=== PATIENT | female | born 2000 | race Caucasian/White ===

== ENCOUNTER 2020-04-24 12:49 | Observation (INO) | payer MEDICAID ==
[2020-04-24] MEDS ORDERED: Sodium Chloride 0.9% 1,000 ML IV ONE (13:01)
[2020-04-24] MEDS ORDERED: Terbutaline 1 MG/ML SDV SUBCUT ONE (13:15)
[2020-04-24] MEDS ORDERED: Sodium Chloride 0.9% 1,000 ML IV SCH ×2 (14:00→19:00)
--- NOTE | 2020-04-24 15:00 | US ---
Doppler Umbilical CLINICAL HISTORY: Contractions COMPARISON: None available FINDINGS: There is a single viable fetus in vertex position. heart rate is 1 46 bpm Umbilical artery S to D ratios: 2.79, 2.26, 2.60 IMPRESSION: S/D ratios as above
[2020-04-24] MEDS: NIFEdipine 10 MG Cap PO SCH ×2 (16:39→22:56)
[2020-04-24] MEDS ORDERED: cefTRIAXone 2 GM in Sodium Chloride 0.9% 50 ML IV ONE (16:45)
[2020-04-24] MEDS: metroNIDAZOLE 250 MG Tab PO SCH (17:06)
--- NOTE | 2020-04-24 18:14 | PCM.LDHP ---
L&D History of Present Illness - General Date of Service: 04/24/20 Admit Problem/Dx: Patient Status Order with Admit Dx/Problem 04/24/20 13:15 Admission Status [Patient Status] [ADT] Routine Admission Diagnosis/Problem Admission Diagnosis/Problem - Related Data Allergies/Adverse Reactions: Allergies Allergy/AdvReac Type Severity Reaction Status Date / Time No Known Allergies Allergy Verified 07/14/18 07:35 Home Medications: Home Meds NK [No Known Home Meds] 07/14/18 [History] Past Medical History HEENT History: Reports: Impaired Vision [employer] INS[employer]OR History: Reports: Psychiatric History: Reports: Anxiety, Depression - Past Surgical History HEENT Surgical History: Reports: Adenoidectomy, Tonsillectomy Social & Family History - Family History Family Medical History: Noncontributory - Tobacco Use Smoking Status *Q: Light Tobacco Smoker Years of Tobacco use: 4 Packs/Tins Daily: 0.2 Second Hand Smoke Exposure: No - Caffeine Use Caffeine Use: Reports: Coffee Other Caffeine Use: small amounts of coffee and soda Caffeine Use Comment: 1 can soda per day - Recreational Drug Use Recreational Drug Use: Yes Drug Use in Last 12 Months: Yes Recreational Drug Type: Reports: Marijuana/Hashish H&P Review of Systems - Review of Systems: Review Of Systems: See Below General: Reports: No Symptoms HEENT: Reports: No Symptoms Pulmonary: Reports: No Symptoms Cardiovascular: Reports: No Symptoms Gastrointestinal: Reports: No Symptoms Genitourinary: Reports: No Symptoms Musculoskeletal: Reports: No Symptoms Skin: Reports: No Symptoms Psychiatric: Reports: No Symptoms Neurological: Reports: No Symptoms Hematologic/Lymphatic: Reports: No Symptoms Immunologic: Reports: No Symptoms L&D Exam - Exam Exam: See Below - Vital Signs Vital Signs: Last Vital Signs Temp 37.0 C 04/24/20 12:59 Pulse 82 04/24/20 17:30 Resp 16 04/24/20 12:59 BP 105/53 L 04/24/20 17:30 Pulse Ox 98 04/24/20 12:59 Weight: 63 kg - OB Specific Contraction Intensity: Mild Movement: Active Heart Tones: Present Heart Rate (FHR) Variability: Moderate (6-25 bmp) Presentation: Vertex - Rojas Score Rojas Score Cervix Position: Midposition Rojas Score Consistency: Soft Rojas Score Effacement: 51-70% Rojas Score Dilation: 1-2 cm Rojas Score 's Station: -1 ,0 Rojas Score Total: 8 - Exam General: Alert, Oriented, Cooperative HEENT: PERRLA, Conjunctiva Clear, EACs Clear, EOMI, Hearing Intact, Mucosa Moist & [place], Nares Patent, Normal Nasal Septum, Posterior Pharynx Clear, TMs Clear Neck: Supple, Trachea Midline Lungs: Clear to Auscultation, Normal Respiratory Effort Cardiovascular: Regular Rate, Regular Rhythm GI/Abdominal Exam: Normal Bowel Sounds, Soft, Non-Tender, No Organomegaly, No Distention, No Abnormal Bruit, No Mass, Pelvis Stable Rectal Exam: Normal Exam, Normal Rectal Tone Genitourinary: Normal external exam, Normal bimanual exam, Normal speculum exam Back Exam: Normal Inspection, Full Range of Motion Extremities: Normal Inspection, Normal Range of Motion, Non-Tender, No Pedal Edema, Normal Capillary Refill Skin: Warm, Dry, Intact Neurological: Cranial Nerves Intact, Reflexes Equal Bilateral Psychiatric: Alert, Normal Affect, Normal Mood - Patient Data Lab Results Last 24 hrs: Laboratory Results - last 24 hr 04/24/20 04/24/20 Range/Units 15:30 15:30 Urine Color Yellow (YELLOW) Urine Appearance Slightly cloudy A (CLEAR) Urine pH 7.5 (5.0-8.0) Ur Specific [place] 1.025 (1.008-1.030) Urine Protein Negative (NEGATIVE) mg/dL Urine Glucose (UA) Negative (NEGATIVE) mg/dL Urine Ketones Negative (NEGATIVE) mg/dL Urine Occult Blood Trace-intact H (NEGATIVE) Urine Nitrite Negative (NEGATIVE) Urine Bilirubin Negative (NEGATIVE) Urine Urobilinogen 0.2 (0.2-1.0) EU/dL Ur Leukocyte Esterase Trace H (NEGATIVE) Urine RBC 0-5 (0-5) Urine WBC 5-10 H (0-5) Ur Epithelial Cells Few Amorphous Sediment Not seen Urine Bacteria Few Urine Mucus Moderate Urine Opiates Screen Negative (NEGATIVE) Ur Oxycodone Screen Negative (NEGATIVE) Urine Methadone Screen Negative (NEGATIVE) Ur Propoxyphene Screen Negative (NEGATIVE) Ur Barbiturates Screen Negative (NEGATIVE) Ur Tricyclics Screen Negative (NEGATIVE) Ur Phencyclidine Scrn Negative (NEGATIVE) Ur Amphetamine Screen Negative (NEGATIVE) U Methamphetamines Scrn Negative (NEGATIVE) Urine MDMA Screen Negative (NEGATIVE) U Benzodiazepines Scrn Negative (NEGATIVE) U Cocaine Metab Screen Negative (NEGATIVE) U Marijuana (THC) Screen Presumptive positive H (NEGATIVE) [place] Results Last 24 hrs: Microbiology 04/24/20 13:00 RAFAEL Preparation - Final Vagina Wet Prep - Final - Problem List (1) Bacterial vaginosis SNOMED Code(s): 757268647 ICD Code: N76.0 - ACUTE VAGINITIS; B96.89 - OTH BACTERIAL AGENTS THE CAUSE OF DISEASES CLASSD [id number] Status: Acute Current Visit: Yes (2) UTI (urinary tract infection) SNOMED Code(s): 37663575 ICD Code: N39.0 - URINARY TRACT INFECTION, SITE NOT SPECIFIED Status: Acute Current Visit: Yes Qualifiers: Encounter type: initial encounter (3) SGA (small for gestational age), , affecting care of mother, antepartum SNOMED Code(s): 083526830, 702927457701 ICD Code: O36.5990 - MATERN CARE FOR OTH OR SUSP POOR FETL GRTH, UNSP TRI, UNSP Status: Acute Current Visit: Yes (4) labor in third trimester SNOMED Code(s): 8505665 ICD Code: O60.03 - LABOR WITHOUT DELIVERY, THIRD TRIMESTER Status: Acute Current Visit: No Problem List Initiated/Reviewed/Updated: Yes Orders Last 24hrs: Active Orders 24 hr Category Date Time Status Admission Status [Patient Status] [ADT] Routine ADT 04/24/20 13:15 Active OB Check [OM.PC] Click to Edit Care 04/24/20 13:00 Ordered Regular Diet [DIET] Diet 04/24/20 Dinner Active CULTURE URINE [RM] Routine Lab 04/24/20 16:12 Received NIFEdipine [Procardia] Med 04/24/20 16:30 Active 10 mg PO Q6H Sodium Chloride 0.9% [Normal Saline] 1,000 ml Med 04/24/20 14:00 Active IV ASDIRECTED metroNIDAZOLE Med 04/24/20 17:00 Active 500 mg PO Q12H Medication Orders Sodium Chloride (Normal Saline) 1,000 mls @ 150 mls/hr IV ASDIRECTED TRINI Last Admin: 04/24/20 13:57 Dose: 150 mls/hr Documented by: CAROLYN Metronidazole (Metronidazole) 500 mg PO Q12H [facility]IN[facility] Last Admin: 04/24/20 17:06 Dose: 500 mg Documented by: CAROLYN Nifedipine (Procardia) 10 mg PO Q6H [facility] Last Admin: 04/24/20 16:39 Dose: 10 mg Documented by: CAROLYN Assessment/Plan Comment:: 04/24/2020 19 yo here at 34 4/7 gestational weeks. Was seen in clinic for routine OB check with NST for possible IUGR and grade 3 placenta. During this visit was haylie regular and having occasional variables. Decision was made to send her to hospital for further evaluation. SVE-2//-1 FHTs now a category one Contractions regular Plan- Will give one dose of terbutaline SQ Start IV and bolus fluids wet prep and RAFAEL collected Collect UA and UDS Continuous monitor of FHTs and contractions Modified bedrest Will consult with [employer]PECTOR in [place]
--- NOTE | 2020-04-24 18:18 | PCM.PNLD ---
Labor Progress Note - VS & Meds Vital Signs: Last Vital Signs Temp 37.0 C 04/24/20 12:59 Pulse 82 04/24/20 17:30 Resp 16 04/24/20 12:59 BP 105/53 L 04/24/20 17:30 Pulse Ox 98 04/24/20 12:59 Active Medications: Current Medications Sodium Chloride (Normal Saline) 1,000 mls @ 150 mls/hr IV ASDIRECTED [facility] Last Admin: 04/24/20 13:57 Dose: 150 mls/hr Documented by: Metronidazole (Metronidazole) 500 mg PO Q12H [facility] Last Admin: 04/24/20 17:06 Dose: 500 mg Documented by: Nifedipine (Procardia) 10 mg PO Q6H [facility] Last Admin: 04/24/20 16:39 Dose: 10 mg Documented by: Discontinued Medications Sodium Chloride (Normal Saline) 1,000 mls @ 999 mls/hr IV .BOLUS ONE Stop: 04/24/20 14:01 Last Admin: 04/24/20 13:15 Dose: 999 mls/hr Documented by: Ceftriaxone Sodium 2 gm/ (Sodium Chloride) 50 mls @ 100 mls/hr IV ONETIME ONE Stop: 04/24/20 17:14 Last Admin: 04/24/20 17:06 Dose: 100 mls/hr Documented by: Terbutaline Sulfate (Brethine) 0.25 mg SUBCUT ONETIME ONE Stop: 04/24/20 13:16 Last Admin: 04/24/20 13:16 Dose: 0.25 mg Documented by: - Uterine Contractions Uterine Monitoring Mode: External [place] Contraction Frequency (min): 0 Contraction Intensity: Mild Uterine Resting Tone: Soft - Monitoring Monitor Mode: External Ultrasound Heart Rate (FHR) Variability: Moderate (6-25 bmp) Accelerations: Present, 15x15 Decelerations: None Strip Review: Category I - Vaginal Exam Dilation (cm): 2-3 Effacement (Percent): 60 Station: Ballotable Cervical Position: Midposition Sterile Vaginal Exam Performed By: Paula Mcleod - Labor Progress (Free Text) Labor Progress: 04/24/2020 Patient has slowed down with contractions and has only had one variable on monitor. BPP-8/8, cord doppler within normal limits FHTs category one Contractions more irregular BV detected on wet prep UA indicates possible UTI Consult with [place] states we do not need to ship for Variables-as long as ANANT is good and cord doppler is good-Per Dr. Toribio Plan- Continue to monitor for labor signs Continue to monitor FHTs Rocephin IV for UTI Flagyl for BV Continue IV fluids 150ml/hour Will plan to keep overnight if no cervical change will go home on modified bed rest Start procardia as prescribed
--- NOTE | 2020-04-24 18:20 | PCM.PNLD ---
Labor Progress Note - VS & Meds Vital Signs: Last Vital Signs Temp 37.0 C 04/24/20 12:59 Pulse 82 04/24/20 17:30 Resp 16 04/24/20 12:59 BP 105/53 L 04/24/20 17:30 Pulse Ox 98 04/24/20 12:59 Active Medications: Current Medications Sodium Chloride (Normal Saline) 1,000 mls @ 150 mls/hr IV ASDIRECTED [facility] Last Admin: 04/24/20 13:57 Dose: 150 mls/hr Documented by: Metronidazole (Metronidazole) 500 mg PO Q12H [facility] Last Admin: 04/24/20 17:06 Dose: 500 mg Documented by: Nifedipine (Procardia) 10 mg PO Q6H [facility] Last Admin: 04/24/20 16:39 Dose: 10 mg Documented by: Discontinued Medications Sodium Chloride (Normal Saline) 1,000 mls @ 999 mls/hr IV .BOLUS ONE Stop: 04/24/20 14:01 Last Admin: 04/24/20 13:15 Dose: 999 mls/hr Documented by: Ceftriaxone Sodium 2 gm/ (Sodium Chloride) 50 mls @ 100 mls/hr IV ONETIME ONE Stop: 04/24/20 17:14 Last Admin: 04/24/20 17:06 Dose: 100 mls/hr Documented by: Terbutaline Sulfate (Brethine) 0.25 mg SUBCUT ONETIME ONE Stop: 04/24/20 13:16 Last Admin: 04/24/20 13:16 Dose: 0.25 mg Documented by: - Uterine Contractions Uterine Monitoring Mode: External [place] Contraction Frequency (min): 0 Contraction Intensity: Mild Uterine Resting Tone: Soft - Monitoring Monitor Mode: External Ultrasound Heart Rate (FHR) Variability: Moderate (6-25 bmp) Accelerations: Present, 15x15 Decelerations: None Strip Review: Category I - Vaginal Exam Dilation (cm): 2-3 Effacement (Percent): 60 Station: Ballotable Cervical Position: Midposition Sterile Vaginal Exam Performed By: Paula Mcleod - Labor Progress (Free Text) Labor Progress: 04/24/2020 Patient currently doing better, very irregular contractions FHTs category one Plan- Can go to every four hour NST with vital signs Patient can get up to bathroom and may shower Can have regular diet Continue medications as prescribed Will give medication to help sleep Plan discharge home tomorrow as long as no labor
[2020-04-25] MEDS: NIFEdipine 10 MG Cap PO SCH ×2 (03:38→08:11)
[2020-04-25] MEDS: metroNIDAZOLE 250 MG Tab PO SCH ×2 (03:41→05:27)
--- NOTE | 2020-04-25 08:03 | PCM.PNLD ---
Labor Progress Note - VS & Meds Vital Signs: Last Vital Signs Temp 35.9 C L 04/25/20 03:41 Pulse 60 04/25/20 03:41 Resp 16 04/25/20 03:41 BP 104/46 L 04/25/20 03:41 Pulse Ox 100 04/25/20 03:41 Active Medications: Current Medications Sodium Chloride (Normal Saline) 1,000 mls @ 100 mls/hr IV ASDIRECTED [facility] Metronidazole (Metronidazole) 500 mg PO Q12H [facility] Last Admin: 04/25/20 05:27 Dose: Not Given Documented by: Nifedipine (Procardia) 10 mg PO Q6H [facility] Last Admin: 04/25/20 03:38 Dose: 10 mg Documented by: Discontinued Medications Sodium Chloride (Normal Saline) 1,000 mls @ 999 mls/hr IV .BOLUS ONE Stop: 04/24/20 14:01 Last Admin: 04/24/20 13:15 Dose: 999 mls/hr Documented by: Sodium Chloride (Normal Saline) 1,000 mls @ 150 mls/hr IV ASDIRECTED [facility] Last Admin: 04/24/20 13:57 Dose: 150 mls/hr Documented by: Ceftriaxone Sodium 2 gm/ (Sodium Chloride) 50 mls @ 100 mls/hr IV ONETIME ONE Stop: 04/24/20 17:14 Last Admin: 04/24/20 17:06 Dose: 100 mls/hr Documented by: Terbutaline Sulfate (Brethine) 0.25 mg SUBCUT ONETIME ONE Stop: 04/24/20 13:16 Last Admin: 04/24/20 13:16 Dose: 0.25 mg Documented by: - Uterine Contractions Uterine Monitoring Mode: External [place] Contraction Frequency (min): 0 Contraction Duration (sec): 0 Uterine Resting Tone: Soft - Monitoring Monitor Mode: External Ultrasound Heart Rate (FHR) Baseline: 150 Heart Rate (FHR) Variability: Moderate (6-25 bmp) Accelerations: Present, 15x15 Decelerations: None Strip Review: Category I - Vaginal Exam Dilation (cm): 2-3 Effacement (Percent): 60 Station: Ballotable Cervical Position: Midposition Sterile Vaginal Exam Performed By: Paula Mcleod Vaginal Exam Comment: No SVE this am - Labor Progress (Free Text) Labor Progress: 04/25/20 Assessment: No further contractions FHT's 150, moderate variability with accels and no decels, category 1 Plan: Discharge home with procardia and Flagyl prescriptions BPP, NST, cord doppler US next week is already scheduled Follow up sooner if any contractions or concerns
== END 2020-04-25 08:40 | disposition home or self-care (01) ==
LOC: JP.OBCHECK 12:49 → JP.OB 13:15 → JP.MS 21:51
PROVIDERS: ADMIT Advanced Practice Midwife; ATTEND Advanced Practice Midwife
DX: O23.593 Infection of other part of genital tract in pregnancy, third trimester (principal); O23.43 Unspecified infection of urinary tract in pregnancy, third trimester; O36.5990 Maternal care for other known or suspected poor fetal growth, unspecified trimester, not applicable or unspecified; O60.03 Preterm labor without delivery, third trimester; O99.333 Smoking (tobacco) complicating pregnancy, third trimester; F17.210 Nicotine dependence, cigarettes, uncomplicated; O99.343 Other mental disorders complicating pregnancy, third trimester; F41.9 Anxiety disorder, unspecified; F32.9 Major depressive disorder, single episode, unspecified; Z3A.34 34 weeks gestation of pregnancy; Z79.899 Other long term (current) drug therapy
CPT/HCPCS: 76820; 80305; 81001; 87086; 87210; 96361; 96365; 96372; A9270; G0378; J0696; J3105; J7030; J7050; 99211

== ENCOUNTER 2020-05-14 19:01 | Inpatient (IN) | payer MEDICAID ==
[2020-05-15] MEDS ORDERED: Naloxone 0.4 MG/ML SDV IVPUSH PRN (07:38)
[2020-05-15] MEDS ORDERED: ePHEDrine 50 MG/ML SDV IVPUSH PRN ×2 (07:38)
[2020-05-15] MEDS ORDERED: Sodium Chloride 0.9% 10 ML Syringe FLUSH PRN (07:38)
[2020-05-15] MEDS ORDERED: Lactated Ringers 1,000 ML IV ONE (07:38)
[2020-05-15] MEDS ORDERED: diphenhydrAMINE 50 MG/ML SDV IVPUSH PRN ×2 (07:38)
[2020-05-15] MEDS ORDERED: Ropivacaine 200 MG in Premix Bag 1 BAG EPIDUR SCH (07:45)
--- NOTE | 2020-05-15 07:53 | PCM.LDHP ---
L&D History of Present Illness - General Date of Service: 05/15/20 Admit Problem/Dx: Patient Status Order with Admit Dx/Problem 05/15/20 07:38 Patient Status [ADT] Routine Admission Diagnosis/Problem Admission Diagnosis/Problem - Related Data Allergies/Adverse Reactions: Allergies Allergy/AdvReac Type Severity Reaction Status Date / Time No Known Allergies Allergy Verified 07/14/18 07:35 Home Medications: Home Meds NIFEdipine [Procardia] 20 mg PO QID 05/04/20 [History] Pnv No.103/Folic/Om3s/Fish Oil [ Gummies] 1 tab PO DAILY 05/04/20 [History] Past Medical History HEENT History: Reports: Impaired Vision 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: Psychiatric History: Reports: Anxiety, Depression - Past Surgical History HEENT Surgical History: Reports: Adenoidectomy, Tonsillectomy Social & Family History - Family History Family Medical History: Noncontributory - Tobacco Use Smoking Status *Q: Light Tobacco Smoker Years of Tobacco use: 5 Packs/Tins Daily: 0.5 Used Tobacco, but Quit: No Second Hand Smoke Exposure: Yes - Caffeine Use Caffeine Use: Reports: Coffee, Soda Other Caffeine Use: small amounts of coffee and soda Caffeine Use Comment: 1 can soda per day - Recreational Drug Use Recreational Drug Use: Yes Drug Use in Last 12 Months: Yes Recreational Drug Type: Reports: Marijuana/Hashish Recreational Drug Use Frequency: Daily H&P Review of Systems - Review of Systems: Review Of Systems: See Below General: Reports: No Symptoms HEENT: Reports: No Symptoms Pulmonary: Reports: No Symptoms Cardiovascular: Reports: No Symptoms Gastrointestinal: Reports: No Symptoms Genitourinary: Reports: No Symptoms Musculoskeletal: Reports: No Symptoms Skin: Reports: No Symptoms Psychiatric: Reports: No Symptoms Neurological: Reports: No Symptoms Hematologic/Lymphatic: Reports: No Symptoms Immunologic: Reports: No Symptoms L&D Exam - Exam Exam: See Below - Vital Signs Vital Signs: Last Vital Signs Temp 36.0 C L 05/15/20 06:44 Pulse 84 05/15/20 06:44 Resp 16 05/15/20 06:44 BP 111/69 05/15/20 06:44 Pulse Ox 98 05/15/20 06:44 Weight: 63.049 kg - OB Specific Contraction Intensity: Moderate Movement: Active Heart Tones: Present Heart Rate (FHR) Variability: Moderate (6-25 bmp) Presentation: Vertex Estimated Weight: 5lbs - Rojas Score Rojas Score Cervix Position: Midposition Rojas Score Consistency: Soft Rojas Score Effacement: 51-70% Rojas Score Dilation: 1-2 cm Rojas Score Infant's Station: -1 ,0 Rojas Score Total: 8 - Exam General: Alert, Oriented, Cooperative HEENT: PERRLA, Conjunctiva Clear, EACs Clear, EOMI, Hearing Intact, Mucosa Moist & [place], Nares Patent, Normal Nasal Septum, Posterior Pharynx Clear, Pupils Equal, Pupils Reactive, TMs Clear Neck: Supple, Trachea Midline Lungs: Clear to Auscultation, Normal Respiratory Effort Cardiovascular: Regular Rate, Regular Rhythm GI/Abdominal Exam: Normal Bowel Sounds, Soft, Non-Tender, No Organomegaly, No Distention, No Abnormal Bruit, No Mass, Pelvis Stable Rectal Exam: Normal Exam, Normal Rectal Tone Genitourinary: Normal external exam, Normal bimanual exam Back Exam: Normal Inspection, Full Range of Motion Extremities: Normal Inspection, Normal Range of Motion, Non-Tender, No Pedal Edema, Normal Capillary Refill Skin: Warm, Dry, Intact Neurological: Cranial Nerves Intact, Reflexes Equal Bilateral DTR: 2+: Patella (L), Patella (R) Psychiatric: Alert, Normal Affect, Normal Mood - Patient Data Lab Results Last 24 hrs: Laboratory Results - last 24 hr 05/15/20 05/15/20 05/15/20 Range/Units 06:41 06:41 07:10 WBC 10.5 (4.5-11.0) K/uL RBC 3.91 (3.30-5.50) M/uL Hgb 11.7 L (12.0-15.0) g/dL Hct 35.7 L (36.0-48.0) % MCV 91 (80-98) fL MCH 30 (27-31) pg MCHC 33 (32-36) % Plt Count 287 (150-400) K/uL Neut % (Auto) 68 H (36-66) % Lymph % (Auto) 24 (24-44) % [place] % (Auto) 7 H (2-6) % Eos % (Auto) 1 L (2-4) % Baso % (Auto) 0 (0-1) % Urine Color Yellow (YELLOW) Urine Appearance Clear (CLEAR) Urine pH 7.5 (5.0-8.0) Ur Specific [place] 1.020 (1.008-1.030) Urine Protein Negative (NEGATIVE) mg/dL Urine Glucose (UA) Negative (NEGATIVE) mg/dL Urine Ketones Negative (NEGATIVE) mg/dL Urine Occult Blood Negative (NEGATIVE) Urine Nitrite Negative (NEGATIVE) Urine Bilirubin Negative (NEGATIVE) Urine Urobilinogen 1.0 (0.2-1.0) EU/dL Ur Leukocyte Esterase Small H (NEGATIVE) Urine RBC 0-5 (0-5) Urine WBC 10-20 H (0-5) Ur Epithelial Cells Moderate Amorphous Sediment Not seen Urine Bacteria Few Urine Mucus Moderate Urine Other Urine Opiates Screen Negative (NEGATIVE) Ur Oxycodone Screen Negative (NEGATIVE) Urine Methadone Screen Negative (NEGATIVE) Ur Propoxyphene Screen Negative (NEGATIVE) Ur Barbiturates Screen Negative (NEGATIVE) Ur Tricyclics Screen Negative (NEGATIVE) Ur Phencyclidine Scrn Negative (NEGATIVE) Ur Amphetamine Screen Negative (NEGATIVE) U Methamphetamines Scrn Negative (NEGATIVE) Urine MDMA Screen Negative (NEGATIVE) U Benzodiazepines Scrn Negative (NEGATIVE) U Cocaine Metab Screen Negative (NEGATIVE) U Marijuana (THC) Screen Presumptive positive H (NEGATIVE) Result Diagrams: 05/15/20 07:10 - Problem List (1) SNOMED Code(s): 78468762 ICD Code: Z34.90 - ENCNTR FOR SUPRVSN OF NORMAL , UNSP, UNSP TRIMESTER Status: Acute Current Visit: Yes Qualifiers: Weeks of gestation: 37 weeks Qualified Code(s): Z3A.37 - 37 weeks gestation of (2) affected by growth restriction SNOMED Code(s): 638515834, 641347968 ICD Code: O36.5990 - MATERN CARE FOR OTH OR SUSP POOR FETL GRTH, UNSP TRI, UNSP Status: Acute Current Visit: Yes (3) IUGR (intrauterine growth retardation) affecting mother SNOMED Code(s): 840794286 ICD Code: O36.5990 - MATERN CARE FOR OTH OR SUSP POOR FETL GRTH, UNSP TRI, UNSP Status: Acute Current Visit: Yes Qualifiers: Fetus number: single or unspecified fetus Trimester: third trimester Qualified Code(s): O36.5930 - Maternal care for other known or suspected poor growth, third trimester, not applicable or unspecified (4) Encounter for induction of labor SNOMED Code(s): 463112727 ICD Code: Z34.90 - ENCNTR FOR SUPRVSN OF NORMAL , UNSP, UNSP TRIMESTER Status: Acute Current Visit: Yes (5) Tetrahydrocannabinol (THC) dependence SNOMED Code(s): 88369483 ICD Code: F12.20 - CANNABIS DEPENDENCE, UNCOMPLICATED Status: Acute Current Visit: Yes (6) Placental abnormality in third trimester SNOMED Code(s): 462678077, 255873696 ICD Code: O43.103 - MALFORMATION OF PLACENTA, UNSPECIFIED, THIRD TRIMESTER Status: Acute Current Visit: Yes (7) Smoker SNOMED Code(s): 41538506 ICD Code: F17.200 - NICOTINE DEPENDENCE, UNSPECIFIED, UNCOMPLICATED Status: Chronic Current Visit: No Problem List Initiated/Reviewed/Updated: Yes Orders Last 24hrs: Active Orders 24 hr Category Date Time Status Patient Status [ADT] Routine ADT 05/15/20 07:38 Active Ambulate [RC] PER UNIT ROUTINE Care 05/15/20 07:38 Active Communication Order [RC] ASDIRECTED Care 05/15/20 07:38 Active Communication Order [RC] ASDIRECTED Care 05/15/20 07:38 Active Communication Order [RC] ROUTINE Care 05/15/20 07:38 Active Communication Order [RC] ROUTINE Care 05/15/20 07:38 Active Communication Order [RC] ROUTINE Care 05/15/20 07:38 Active Heart Tones [RC] PER UNIT ROUTINE Care 05/15/20 07:38 Active Non Stress Test [RC] Click to Edit Care 05/15/20 07:38 Active Insert Urinary Catheter [OM.PC] ASDIRECTED Care 05/15/20 07:45 Ordered Local Anesthetic Infusion Pump [RC] ASDIRECTED Care 05/15/20 07:38 Active May Shower [RC] ASDIRECTED Care 05/15/20 07:38 Active Notify Provider Vital Signs [RC] PRN Care 05/15/20 07:38 Active Notify Provider [RC] PRN Care 05/15/20 07:38 Active Oxygen Therapy [RC] ASDIRECTED Care 05/15/20 07:38 Active PCEA Epidural [RC] ASDIRECTED Care 05/15/20 07:38 Active PCEA Epidural [RC] ASDIRECTED Care 05/15/20 07:38 Active PCEA Epidural [RC] ASDIRECTED Care 05/15/20 07:39 Active Peripheral IV Care [RC] . DIRECTED Care 05/15/20 07:39 Active Pulse Oximetry [RC] ASDIRECTED Care 05/15/20 07:38 Active Up ad Sanjuana [RC] ASDIRECTED Care 05/15/20 07:38 Active Urinary Catheter Assessment [RC] ASDIRECTED Care 05/15/20 07:39 Active VTE/DVT Education [RC] Click to Edit Care 05/15/20 07:40 Active Vital Signs [RC] PER UNIT ROUTINE Care 05/15/20 07:38 Active Vital Signs [RC] PER UNIT ROUTINE Care 05/15/20 07:38 Active Consult to Case Management/[employer] [CONS] Cons 05/15/20 07:38 Active Routine Regular Diet [DIET] Diet 05/15/20 Breakfast Active BPP wo NST [US] Routine Exams 05/15/20 06:45 Taken Lactated Ringers [Ringers, Lactated] 1,000 ml Med 05/15/20 07:38 Ordered IV .BOLUS Naloxone [Narcan] Med 05/15/20 07:38 Ordered 0.1 mg IVPUSH ASDIRECTED PRN Oxytocin/Normal Saline [Pitocin in NS 20 Units/1,000 ML Med 05/15/20 07:45 Ordered ] 20 unit in 1,000 ml IV TITRATE Ropivacaine [Naropin 0.2%] 200 mg Med 05/15/20 07:45 Ordered Premix Bag 1 bag EPIDUR ASDIRECTED Sodium Chloride 0.9% [Saline Flush] Med 05/15/20 07:38 Ordered 10 ml FLUSH ASDIRECTED PRN diphenhydrAMINE [Benadryl] Med 05/15/20 07:38 Ordered 25 mg IVPUSH Q6H PRN diphenhydrAMINE [Benadryl] Med 05/15/20 07:38 Ordered 50 mg IVPUSH Q6H PRN ePHEDrine [ePHEDrine sulfate] Med 05/15/20 07:38 Ordered 10 mg IVPUSH ASDIRECTED PRN ePHEDrine [ePHEDrine sulfate] Med 05/15/20 07:38 Ordered 10 mg IVPUSH ASDIRECTED PRN DVT/VTE Prophylaxis Reflex [OM.PC] Routine Oth 05/15/20 07:38 Ordered Epidural Catheter Management [OM.PC] Routine Oth 05/15/20 07:38 Ordered Epidural Catheter Management [OM.PC] Urgent Oth 05/15/20 07:38 Ordered Peripheral IV Insertion Pediatric [OM.PC] Routine Oth 05/15/20 07:38 Ordered Saline Lock Insert [OM.PC] Routine Oth 05/15/20 07:38 Ordered Resuscitation Status Routine Resus Stat 05/15/20 07:38 Ordered Medication Orders Diphenhydramine HCl (Benadryl) 25 mg IVPUSH Q6H PRN PRN Reason: Itching Diphenhydramine HCl (Benadryl) 50 mg IVPUSH Q6H PRN PRN Reason: Itching Ephedrine Sulfate (Ephedrine Sulfate) 10 mg IVPUSH ASDIRECTED PRN PRN Reason: Hypotension Ephedrine Sulfate (Ephedrine Sulfate) 10 mg IVPUSH ASDIRECTED PRN PRN Reason: Hypotension Lactated Ringer's (Ringers, Lactated) 1,000 mls @ 999 mls/hr IV .BOLUS ONE Stop: 05/15/20 08:38 Ropivacaine 200 mg/ Premix 100 mls @ 0 mls/hr EPIDUR ASDIRECTED TRINI Oxytocin/Sodium Chloride (Pitocin In Ns 20 Units/1,000 Ml) 20 unit in 1,000 mls @ 6 mls/hr IV TITRATE TRINI; Protocol Naloxone HCl (Narcan) 0.1 mg IVPUSH ASDIRECTED PRN PRN Reason: Oversedation Sodium Chloride (Saline Flush) 10 ml FLUSH ASDIRECTED PRN PRN Reason: Keep Vein Open Assessment/Plan Comment:: 05/15/2020 19 yo here at 37 4/7 here for medical induction of labor for IUGR Placenta abnormality History of labor Smoker THC use Labs-A positive, HIV neg, Hep B neg, Hep C neg, RPR nonreactive, GBS negative, Hgb-11.7, THC positive in urine SVE-2/60/-1 [place] regularly every 2.5-3 minutes FHTs category one Plan- Monitor for active labor Monitor FHTs Start pitocin per protocol Place second IV for abnormal placenta Patient may eat regular diet Pain management per patient request If desire epidural SVE and call provider and 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
--- NOTE | 2020-05-15 09:47 | US ---
BPP wo NST INDICATION: inducing COMPARISON: Reducing labor today FINDINGS: Single live IUP at 37 weeks 4 days by LMP heart rate: 152 BPM. Biophysical profile score: 8/8. ANANT: 15.8 cm. IMPRESSION: Normal biophysical profile score of 8/8.
[2020-05-15] MEDS ORDERED: Ropivacaine 100 ML ONE (13:16)
--- NOTE | 2020-05-15 15:35 | ANES ---
DATE OF SERVICE: 05/15/2020 INDICATIONS: I was called by the OB Department this early afternoon for a young lady in for induction and requesting a labor epidural. I was at the bedside at approximately 12:35. A brief history and physical was done with the patient. No abnormal issues or health issues related to the patient. The patient denied being on any blood thinners such as Coumadin and Plavix, and overall, healthy with some labor issues. Risks and benefits, including infection and postdural puncture headache were reviewed with the patient, and the patient verbalizes her understanding and wishes to proceed with the labor epidural at this time. DESCRIPTION OF PROCEDURE: The patient was then sat at the edge of the bed. Betadine prep x3 to the lumbar region was done, sterile drape was placed. 1% lidocaine skin wheal and deep was done. A 17-gauge Tuohy needle was inserted at approximately the L3-4 position. Loss of resistance was easily achieved at approximately 4.5 cm to 5 cm. Catheter was then easily threaded through the [place]. The Tuohy needle was withdrawn and catheter was pulled back and secured at approximately 13 cm. I then proceeded to give the patient a 5-mL test dose. After the test dose was done, catheter was fully secured. The patient was laid in the supine position with head of bed slightly elevated and left uterine displacement. The patient showed no signs of intravascular injection of local anesthetic or subarachnoid block. I then proceeded to give the patient 12 mL of 0.2% ropivacaine bolus via the epidural and started her on a 0.2% ropivacaine drip at 12 mL an hour. The patient tolerated the procedure without difficulty. Please refer to the nurse's notes for vital signs. Prior to leaving, patient was starting to feel some numbness and tingling in her legs and will be available as needed for any further issues related to the epidural. Raimundo Kumar CRNA /[id number]
[2020-05-15] MEDS ORDERED: Methylergonovine 0.2 MG/1 ML Amp ONE (16:24)
[2020-05-15] MEDS ORDERED: Misoprostol 200 MCG Tab ONE (16:24)
[2020-05-15] MEDS ORDERED: Carboprost Tromethamine 250 MCG/1 ML Amp ONE (16:24)
[2020-05-15] MEDS ORDERED: Acetaminophen 325 MG Tab, 50 Tab Bulk Bottle PO PRN (16:44)
[2020-05-15] MEDS ORDERED: Benzocaine 20% Top Spray 56 GM Bottle TOP ONE (16:44)
[2020-05-15] MEDS ORDERED: Witch Hazel Medicated Pads 100/Jar TOP ONE (16:44)
[2020-05-15] MEDS ORDERED: Ibuprofen 200 MG Tab, 24 Tab Bulk Bottle PO PRN (16:44)
[2020-05-15] MEDS ORDERED: Lanolin 100% Cream 40 GM Tube TOP ONE (16:44)
--- NOTE | 2020-05-15 17:15 | PCM.PNLD ---
Labor Progress Note - VS & Meds Vital Signs: Last Vital Signs Temp 36.2 C 05/15/20 13:43 Pulse 84 05/15/20 14:10 Resp 18 05/15/20 14:10 BP 101/54 L 05/15/20 14:10 Pulse Ox 99 05/15/20 14:10 Active Medications: Current Medications Acetaminophen (Tylenol Bulk Bottle) 0 mg PO Q4H PRN PRN Reason: Pain Benzocaine (Fdae-X-Fptwfom 20% [place]) 0 gm TOP ONETIME ONE Stop: 05/15/20 16:45 Diphenhydramine HCl (Benadryl) 25 mg IVPUSH Q6H PRN PRN Reason: Itching Diphenhydramine HCl (Benadryl) 50 mg IVPUSH Q6H PRN PRN Reason: Itching Emollient Ointment (Lansinoh Hpa) 1 gm TOP ONETIME ONE Stop: 05/15/20 16:45 Ephedrine Sulfate (Ephedrine Sulfate) 10 mg IVPUSH ASDIRECTED PRN PRN Reason: Hypotension Ephedrine Sulfate (Ephedrine Sulfate) 10 mg IVPUSH ASDIRECTED PRN PRN Reason: Hypotension Ropivacaine 200 mg/ Premix 100 mls @ 0 mls/hr EPIDUR ASDIRECTED TRINI Oxytocin/Sodium Chloride (Pitocin In Ns 20 Units/1,000 Ml) 20 unit in 1,000 mls @ 6 mls/hr IV TITRATE TRINI; Protocol Last Titration: 05/15/20 14:35 Dose: 17 munits/min, 51 mls/hr Documented by: Ibuprofen (Motrin Bulk Bottle) 600 mg PO Q6H PRN PRN Reason: Pain Naloxone HCl (Narcan) 0.1 mg IVPUSH ASDIRECTED PRN PRN Reason: Oversedation Sodium Chloride (Saline Flush) 10 ml FLUSH ASDIRECTED PRN PRN Reason: Keep Vein Open Witch [place] (Tucks) 1 pad TOP ONETIME ONE Stop: 05/15/20 16:45 Discontinued Medications Carboprost Tromethamine (Hemabate Ds) Confirm Administered Dose 250 mcg .ROUTE .STK-MED ONE Stop: 05/15/20 16:25 Lactated Ringer's (Ringers, Lactated) 1,000 mls @ 999 mls/hr IV .BOLUS ONE Stop: 05/15/20 08:38 Last Admin: 05/15/20 12:22 Dose: 999 mls/hr Documented by: Ropivacaine (Naropin 0.2%) Confirm Administered Dose 100 mls @ as directed .ROUTE .STK-MED ONE Stop: 05/15/20 13:17 Methylergonovine Maleate (Methergine) Confirm Administered Dose 0.2 mg .ROUTE .STK-MED ONE Stop: 05/15/20 16:25 Misoprostol (Cytotec) Confirm Administered Dose 800 mcg .ROUTE .STK-MED ONE Stop: 05/15/20 16:25 - Uterine Contractions Uterine Monitoring Mode: External [place] Contraction Frequency (min): 1-3 Contraction Duration (sec): 50-80 Contraction Intensity: Strong Uterine Resting Tone: Soft - Monitoring Heart Rate (FHR) Variability: Moderate (6-25 bmp) - Vaginal Exam Dilation (cm): 4 Effacement (Percent): 80 Station: -1 Cervical Position: Midposition Sterile Vaginal Exam Performed By: Paula Mcleod - Labor Progress (Free Text) Labor Progress: 05/15/2020 Patient progressing nicely Requesting epidural SVE-4/80/-1 Contractions more regular FHTs category one Plan- Continue to monitor labor Continue to monitor FHTs Epidural per patient request, once comfortable will AROM Continue Pitocin per protocol Plan and anticipate a vaginal delivery
--- NOTE | 2020-05-15 17:23 | PCM.DEL ---
L & D Note - General Info Date of Service: 05/15/20 Mother's Due Date: 05/30/20 - Delivery Note Labor: Induced by Oxytocin Cervical Ripening Method: Oxytocin Delivery Outcome: Livebirth Delivery Method: Spontaneous Vaginal Delivery-Single Infant Delivery Mode: Spontaneous Presentation: Left Occiput Anterior (MARK) Nuchal Cord: None Anesthesia Type: Epidural Amniotic Fluid Description: Clear Episiotomy Type: None Laceration: None Placenta: Intact, Spontaneous Cord: 3 Vessels Estimated Blood Loss: 200 Resuscitation Needed: No Crum: Bulb Syringe, Stimulated, Warmed, [place] Used Score 1 min: 8 Score 5 min: 9 Second Stage Interventions: Reports: Second Nurse Assessed Progress of Descent, Second Nurse Reviewed Contraction Pattern, Second Nurse Reviewed Heart Tones, Encouragement Given, Pushing Effectively, Pushing, Pulls Own Legs Back, Pushing, Stirrups/Leg Supports Delivery Comments (Free Text/Narrative):: 05/15/2020 19 yo delivered at 37 4/7 weeks gestation a viable female infant at 1629 on 05/15/2020 in MARK position over an intact perineum. She was a planned induction for IUGR, poor growth, and placenta abnormality. Infant was delivered and placed on blanket on mothers abdomen, delayed cord clamping was done for approximately 90 seconds, then cord was double clamped and cut by provider. was crying vigorously and pinking in color. APGARS-8/9, weight-6lbs, length 19.2 inches. Placenta then came intact, with abnormal insertion site for cord, three vessel cord. EBL-200ml, no lacerations noted of labia, vagina, perineum, cervix, or rectum. now skin to skin and stable with mother of . Stages of labor [id number] - General Info Date of Service: 05/15/20 Functional Status: Reports: Pain Controlled - Review of Systems General: Reports: No Symptoms HEENT: Reports: No Symptoms Pulmonary: Reports: No Symptoms Cardiovascular: Reports: No Symptoms Gastrointestinal: Reports: No Symptoms Genitourinary: Reports: No Symptoms Musculoskeletal: Reports: No Symptoms Skin: Reports: No Symptoms Neurological: Reports: No Symptoms Psychiatric: Reports: No Symptoms - Patient Data Vitals - Most Recent: Last Vital Signs Temp 36.2 C 05/15/20 13:43 Pulse 84 05/15/20 14:10 Resp 18 05/15/20 14:10 BP 101/54 L 05/15/20 14:10 Pulse Ox 99 05/15/20 14:10 Weight - Most Recent: 63.049 kg I&O - Last 24 Hours: Intake & Output 05/15/20 05/15/20 05/15/20 06:59 14:59 22:59 Intake Total 1600 Balance 1600 Lab Results Last 24 Hours: Laboratory Results - last 24 hr 05/15/20 05/15/20 05/15/20 Range/Units 06:41 06:41 07:10 WBC 10.5 (4.5-11.0) K/uL RBC 3.91 (3.30-5.50) M/uL Hgb 11.7 L (12.0-15.0) g/dL Hct 35.7 L (36.0-48.0) % MCV 91 (80-98) fL MCH 30 (27-31) pg MCHC 33 (32-36) % Plt Count 287 (150-400) K/uL Neut % (Auto) 68 H (36-66) % Lymph % (Auto) 24 (24-44) % [place] % (Auto) 7 H (2-6) % Eos % (Auto) 1 L (2-4) % Baso % (Auto) 0 (0-1) % Urine Color Yellow (YELLOW) Urine Appearance Clear (CLEAR) Urine pH 7.5 (5.0-8.0) Ur Specific [place] 1.020 (1.008-1.030) Urine Protein Negative (NEGATIVE) mg/dL Urine Glucose (UA) Negative (NEGATIVE) mg/dL Urine Ketones Negative (NEGATIVE) mg/dL Urine Occult Blood Negative (NEGATIVE) Urine Nitrite Negative (NEGATIVE) Urine Bilirubin Negative (NEGATIVE) Urine Urobilinogen 1.0 (0.2-1.0) EU/dL Ur Leukocyte Esterase Small H (NEGATIVE) Urine RBC 0-5 (0-5) Urine WBC 10-20 H (0-5) Ur Epithelial Cells Moderate Amorphous Sediment Not seen Urine Bacteria Few Urine Mucus Moderate Urine Other Urine Opiates Screen Negative (NEGATIVE) Ur Oxycodone Screen Negative (NEGATIVE) Urine Methadone Screen Negative (NEGATIVE) Ur Propoxyphene Screen Negative (NEGATIVE) Ur Barbiturates Screen Negative (NEGATIVE) Ur Tricyclics Screen Negative (NEGATIVE) Ur Phencyclidine Scrn Negative (NEGATIVE) Ur Amphetamine Screen Negative (NEGATIVE) U Methamphetamines Scrn Negative (NEGATIVE) Urine MDMA Screen Negative (NEGATIVE) U Benzodiazepines Scrn Negative (NEGATIVE) U Cocaine Metab Screen Negative (NEGATIVE) U Marijuana (THC) Screen Presumptive positive H (NEGATIVE) Med Orders - Current: Current Medications Acetaminophen (Tylenol Bulk Bottle) 0 mg PO Q4H PRN PRN Reason: Pain Benzocaine (Otzm-C-Pxuuldm 20% [place]) 0 gm TOP ONETIME ONE Stop: 05/15/20 16:45 Diphenhydramine HCl (Benadryl) 25 mg IVPUSH Q6H PRN PRN Reason: Itching Diphenhydramine HCl (Benadryl) 50 mg IVPUSH Q6H PRN PRN Reason: Itching Emollient Ointment (Lansinoh Hpa) 1 gm TOP ONETIME ONE Stop: 05/15/20 16:45 Ephedrine Sulfate (Ephedrine Sulfate) 10 mg IVPUSH ASDIRECTED PRN PRN Reason: Hypotension Ephedrine Sulfate (Ephedrine Sulfate) 10 mg IVPUSH ASDIRECTED PRN PRN Reason: Hypotension Ropivacaine 200 mg/ Premix 100 mls @ 0 mls/hr EPIDUR ASDIRECTED TRINI Oxytocin/Sodium Chloride (Pitocin In Ns 20 Units/1,000 Ml) 20 unit in 1,000 mls @ 6 mls/hr IV TITRATE TRINI; Protocol Last Titration: 05/15/20 14:35 Dose: 17 munits/min, 51 mls/hr Documented by: Ibuprofen (Motrin Bulk Bottle) 600 mg PO Q6H PRN PRN Reason: Pain Naloxone HCl (Narcan) 0.1 mg IVPUSH ASDIRECTED PRN PRN Reason: Oversedation Sodium Chloride (Saline Flush) 10 ml FLUSH ASDIRECTED PRN PRN Reason: Keep Vein Open Witquintin Baltazar (Tucks) 1 pad TOP ONETIME ONE Stop: 05/15/20 16:45 Discontinued Medications Carboprost Tromethamine (Hemabate Ds) Confirm Administered Dose 250 mcg .ROUTE .STK-MED ONE Stop: 05/15/20 16:25 Lactated Ringer's (Ringers, Lactated) 1,000 mls @ 999 mls/hr IV .BOLUS ONE Stop: 05/15/20 08:38 Last Admin: 05/15/20 12:22 Dose: 999 mls/hr Documented by: Ropivacaine (Naropin 0.2%) Confirm Administered Dose 100 mls @ as directed .ROUTE .STK-MED ONE Stop: 05/15/20 13:17 Methylergonovine Maleate (Methergine) Confirm Administered Dose 0.2 mg .ROUTE .STK-MED ONE Stop: 05/15/20 16:25 Misoprostol (Cytotec) Confirm Administered Dose 800 mcg .ROUTE .STK-MED ONE Stop: 05/15/20 16:25 - Exam General: Alert, Oriented, Cooperative HEENT: Pupils Equal, Pupils Reactive, EOMI, Mucous Membr. Moist/[place] Neck: Supple Lungs: Clear to Auscultation, Normal Respiratory Effort Cardiovascular: Regular Rate, Regular Rhythm, No Murmurs GI/Abdominal Exam: Normal Bowel Sounds, Soft, Non-Tender, No Organomegaly, No Distention, No Abnormal Bruit, No Mass, Pelvis Stable (Female) Exam: Normal External Exam, Normal Speculum Exam, Normal Bimanual Exam, Enlarged Uterus, Vaginal Bleeding Back Exam: Normal Inspection, Full Range of Motion Extremities: Normal Inspection, Normal Range of Motion, Non-Tender, No Pedal Edema, Normal Capillary Refill Skin: Warm, Dry, Intact Neurological: No New Focal Deficit Psy/Mental Status: Alert, Normal Affect, Normal Mood - Problem List & Annotations (1) SNOMED Code(s): 53514589 Code(s): Z34.90 - ENCNTR FOR SUPRVSN OF NORMAL , UNSP, UNSP TRIMESTER Status: Acute Current Visit: Yes Qualifiers: Weeks of gestation: 37 weeks Qualified Code(s): Z3A.37 - 37 weeks gestation of (2) affected by growth restriction SNOMED Code(s): 456310791, 607140431 Code(s): O36.5990 - MATERN CARE FOR OTH OR SUSP POOR FETL GRTH, UNSP TRI, UNSP Status: Acute Current Visit: Yes (3) IUGR (intrauterine growth retardation) affecting mother SNOMED Code(s): 354847302 Code(s): O36.5990 - MATERN CARE FOR OTH OR SUSP POOR FETL GRTH, UNSP TRI, UNSP Status: Acute Current Visit: Yes Qualifiers: Fetus number: single or unspecified fetus Trimester: third trimester Qualified Code(s): O36.5930 - Maternal care for other known or suspected poor growth, third trimester, not applicable or unspecified (4) Encounter for induction of labor SNOMED Code(s): 777185279 Code(s): Z34.90 - ENCNTR FOR SUPRVSN OF NORMAL , UNSP, UNSP TRIMESTER Status: Acute Current Visit: Yes (5) Tetrahydrocannabinol (THC) dependence SNOMED Code(s): 03695244 Code(s): F12.20 - CANNABIS DEPENDENCE, UNCOMPLICATED Status: Acute Current Visit: Yes (6) Placental abnormality in third trimester SNOMED Code(s): 788501504, 676248064 Code(s): O43.103 - MALFORMATION OF PLACENTA, UNSPECIFIED, THIRD TRIMESTER Status: Acute Current Visit: Yes (7) Smoker SNOMED Code(s): 24693657 Code(s): F17.200 - NICOTINE DEPENDENCE, UNSPECIFIED, UNCOMPLICATED Status: Chronic Current Visit: No (8) Vaginal delivery SNOMED Code(s): 941178676 Code(s): O80 - ENCOUNTER FOR FULL-TERM UNCOMPLICATED DELIVERY Status: Acute Current Visit: Yes (9) () SNOMED Code(s): 972878833 Code(s): Z78.9 - OTHER SPECIFIED HEALTH STATUS Status: Acute Current Visit: Yes - Problem List Review Problem List Initiated/Reviewed/Updated: Yes - My Orders Last 24 Hours: My Active Orders 05/15/20 07:38 Patient Status [ADT] Routine Ambulate [RC] PER UNIT ROUTINE Communication Order [RC] ASDIRECTED Communication Order [RC] ASDIRECTED Communication Order [RC] ROUTINE Communication Order [RC] ROUTINE Communication Order [RC] ROUTINE Local Anesthetic Infusion Pump [RC] ASDIRECTED May Shower [RC] ASDIRECTED Notify Provider Vital Signs [RC] PRN Notify Provider [RC] PRN Oxygen Therapy [RC] ASDIRECTED Pulse Oximetry [RC] ASDIRECTED Up ad Sanjuana [RC] ASDIRECTED Vital Signs [RC] PER UNIT ROUTINE Consult to Case Management/Reeling Operator [CONS] Routine Naloxone [Narcan] 0.1 mg IVPUSH ASDIRECTED PRN Sodium Chloride 0.9% [Saline Flush] 10 ml FLUSH ASDIRECTED PRN diphenhydrAMINE [Benadryl] 25 mg IVPUSH Q6H PRN diphenhydrAMINE [Benadryl] 50 mg IVPUSH Q6H PRN ePHEDrine [ePHEDrine sulfate] 10 mg IVPUSH ASDIRECTED PRN ePHEDrine [ePHEDrine sulfate] 10 mg IVPUSH ASDIRECTED PRN DVT/VTE Prophylaxis Reflex [OM.PC] Routine Epidural Catheter Management [OM.PC] Routine Epidural Catheter Management [OM.PC] Urgent Peripheral IV Insertion Pediatric [OM.PC] Routine Saline Lock Insert [OM.PC] Routine Resuscitation Status Routine 05/15/20 07:39 PCEA Epidural [RC] ASDIRECTED Peripheral IV Care [RC] . DIRECTED Urinary Catheter Assessment [RC] ASDIRECTED 05/15/20 07:40 VTE/DVT Education [RC] Click to Edit 05/15/20 07:45 Insert Urinary Catheter [OM.PC] ASDIRECTED Oxytocin/Normal Saline [Pitocin in NS 20 Units/1,000 ML] 20 unit in 1,000 ml IV TITRATE Ropivacaine [Naropin 0.2%] 200 mg Premix Bag 1 bag EPIDUR ASDIRECTED 05/15/20 Breakfast Regular Diet [DIET] 05/15/20 16:44 Consult to Central Communications Specialist [CONS] Routine Acetaminophen [Tylenol Bulk Bottle] See Dose Instructions PO Q4H PRN Benzocaine [Ewej-R-Pqmhptr 20% [place]] See Dose Instructions TOP ONETIME ONE Ibuprofen [Motrin Bulk Bottle] 600 mg PO Q6H PRN Lanolin [Lansinoh HPA] 1 gm TOP ONETIME ONE witch Jose [Tucks] 1 pad TOP ONETIME ONE Assess Lochia [WOMSER] Per Unit Routine Assess Uterine Involution [WOMSER] Per Unit Routine 05/15/20 16:45 Patient Status [ADT] Routine Vital Signs [RC] PFP 05/15/20 16:46 Perineal Care [OM.PC] Per Unit Routine 05/16/20 06:00 CBC WITH AUTO DIFF [HEME] Routine - Assessment Assessment:: 05/15/2020 without complications Smoker UDS positive THC Abnormal placenta - Plan Plan:: 05/15/2020 19 yo here at 37 4/7 here for medical induction of labor for IUGR Placenta abnormality History of labor Smoker THC use Labs-A positive, HIV neg, Hep B neg, Hep C neg, RPR nonreactive, GBS negative, Hgb-11.7, THC positive in urine SVE-/-1 Corina regularly every 2.5-3 minutes FHTs category one Plan- Monitor for active labor Monitor FHTs Start pitocin per protocol Place second IV for abnormal placenta Patient may eat regular diet Pain management per patient request If desire epidural SVE and call provider and MEDICAL SPECIALIST Plan and anticipate a vaginal delivery 05/15/2020 Routine cares Encourage and support
--- NOTE | 2020-05-16 08:03 | PCM.PNPP ---
- General Info Date of Service: 05/16/20 (PPD 1 D/C) Admission Dx/Problem (Free Text): Patient Status Order with Admit Dx/Problem 05/15/20 07:38 Patient Status [ADT] Routine Admission Diagnosis/Problem Admission Diagnosis/Problem Functional Status: Reports: Pain Controlled, Ambulating, Urinating - Review of Systems General: Reports: No Symptoms HEENT: Reports: No Symptoms Pulmonary: Reports: No Symptoms Cardiovascular: Reports: No Symptoms Gastrointestinal: Reports: No Symptoms Genitourinary: Reports: No Symptoms Musculoskeletal: Reports: No Symptoms Skin: Reports: No Symptoms Neurological: Reports: No Symptoms Psychiatric: Reports: No Symptoms - General Info Date of Service: 05/16/20 - Patient Data Vital Signs - Most Recent: Last Vital Signs Temp 96.0 F L 05/16/20 03:45 Pulse 96 05/16/20 03:45 Resp 16 05/16/20 03:45 BP 103/73 05/16/20 03:45 Pulse Ox 96 05/16/20 03:45 Weight - Most Recent: 139 lb I&O - Last 24 Hours: Intake & Output 05/15/20 05/16/20 05/16/20 22:59 06:59 14:59 Intake Total 1044 Balance 1044 Lab Results - Last 24 Hours: Laboratory Results - last 24 hr 05/16/20 Range/Units 05:26 WBC 12.3 H (4.5-11.0) K/uL RBC 3.81 (3.30-5.50) M/uL Hgb 11.6 L (12.0-15.0) g/dL Hct 34.8 L (36.0-48.0) % MCV 91 (80-98) fL MCH 30 (27-31) pg MCHC 33 (32-36) % Plt Count 270 (150-400) K/uL Neut % (Auto) 66 (36-66) % Lymph % (Auto) 25 (24-44) % [place] % (Auto) 8 H (2-6) % Eos % (Auto) 1 L (2-4) % Baso % (Auto) 0 (0-1) % Med Orders - Current: Current Medications Acetaminophen (Tylenol Bulk Bottle) 0 mg PO Q4H PRN PRN Reason: Pain Last Admin: 05/15/20 20:17 Dose: 325 mg Documented by: Diphenhydramine HCl (Benadryl) 25 mg IVPUSH Q6H PRN PRN Reason: Itching Diphenhydramine HCl (Benadryl) 50 mg IVPUSH Q6H PRN PRN Reason: Itching Ephedrine Sulfate (Ephedrine Sulfate) 10 mg IVPUSH ASDIRECTED PRN PRN Reason: Hypotension Ephedrine Sulfate (Ephedrine Sulfate) 10 mg IVPUSH ASDIRECTED PRN PRN Reason: Hypotension Ropivacaine 200 mg/ Premix 100 mls @ 0 mls/hr EPIDUR ASDIRECTED TRINI Oxytocin/Sodium Chloride (Pitocin In Ns 20 Units/1,000 Ml) 20 unit in 1,000 mls @ 6 mls/hr IV TITRATE TRINI; Protocol Last Titration: 05/15/20 14:35 Dose: 17 munits/min, 51 mls/hr Documented by: Ibuprofen (Motrin Bulk Bottle) 600 mg PO Q6H PRN PRN Reason: Pain Last Admin: 05/15/20 20:16 Dose: 600 mg Documented by: Naloxone HCl (Narcan) 0.1 mg IVPUSH ASDIRECTED PRN PRN Reason: Oversedation Sodium Chloride (Saline Flush) 10 ml FLUSH ASDIRECTED PRN PRN Reason: Keep Vein Open Discontinued Medications Benzocaine (Yflu-O-Zyrdbxy 20% [place]) 0 gm TOP ONETIME ONE Stop: 05/15/20 16:45 Last Admin: 05/15/20 20:18 Dose: Not Given Documented by: Carboprost Tromethamine (Hemabate Ds) Confirm Administered Dose 250 mcg .ROUTE .STK-MED ONE Stop: 05/15/20 16:25 Last Admin: 05/15/20 18:07 Dose: Not Given Documented by: Emollient Ointment (Lansinoh Hpa) 1 gm TOP ONETIME ONE Stop: 05/15/20 16:45 Last Admin: 05/15/20 20:17 Dose: Not Given Documented by: Lactated Ringer's (Ringers, Lactated) 1,000 mls @ 999 mls/hr IV .BOLUS ONE Stop: 05/15/20 08:38 Last Admin: 05/15/20 12:22 Dose: 999 mls/hr Documented by: Ropivacaine (Naropin 0.2%) Confirm Administered Dose 100 mls @ as directed .ROUTE .STK-MED ONE Stop: 05/15/20 13:17 Methylergonovine Maleate (Methergine) Confirm Administered Dose 0.2 mg .ROUTE .STK-MED ONE Stop: 05/15/20 16:25 Last Admin: 05/15/20 18:08 Dose: Not Given Documented by: Misoprostol (Cytotec) Confirm Administered Dose 800 mcg .ROUTE .STK-MED ONE Stop: 05/15/20 16:25 Last Admin: 05/15/20 18:07 Dose: Not Given Documented by: Nora Baltazar ([facility]) 1 pad TOP ONETIME ONE Stop: 05/15/20 16:45 Last Admin: 05/15/20 20:17 Dose: Not Given Documented by: - Interaction Infant Disposition, : [place] in Room with Family Infant Interaction: Not Interacting Feeding: Attempted ; Nursed Fair/Poor, Bottle Fed Infant Support Person: Significant Other - Recovery Exam Fundal Tone: Firm Fundal Level: 2 Fingerbreadths Below Umbilicus Fundal Placement: Midline Lochia Amount: Small Lochia Color: Rubra/Red Perineum Description: Intact, Minimal Bruising/Swelling Episiotomy/Laceration: None Bladder Status: Indwelling Catheter in Place Urinary Elimination: Voided Other Urinary Elimination, : due to void - Exam General: Alert, Oriented HEENT: Pupils Equal, Pupils Reactive Neck: Supple Lungs: Clear to Auscultation Cardiovascular: Regular Rhythm GI/Abdominal Exam: Normal Bowel Sounds, Soft Extremities: Normal Range of Motion, No Pedal Edema, Normal Capillary Refill Skin: Warm Wound/Incisions: Healing Well Neurological: No New Focal Deficit Psy/Mental Status: Alert, Normal Affect, Normal Mood - Problem List & Annotations (1) affected by growth restriction SNOMED Code(s): 789612121, 683366136 Code(s): O36.5990 - MATERN CARE FOR OTH OR SUSP POOR FETL GRTH, UNSP TRI, UNSP Status: Acute Current Visit: Yes (2) IUGR (intrauterine growth retardation) affecting mother SNOMED Code(s): 260076985 Code(s): O36.5990 - MATERN CARE FOR OTH OR SUSP POOR FETL GRTH, UNSP TRI, UNSP Status: Acute Current Visit: Yes Qualifiers: Fetus number: single or unspecified fetus Trimester: third trimester Qualified Code(s): O36.5930 - Maternal care for other known or suspected poor growth, third trimester, not applicable or unspecified (3) Tetrahydrocannabinol (THC) dependence SNOMED Code(s): 15914646 Code(s): F12.20 - CANNABIS DEPENDENCE, UNCOMPLICATED Status: Acute Current Visit: Yes (4) Placental abnormality in third trimester SNOMED Code(s): 058562043, 587806893 Code(s): O43.103 - MALFORMATION OF PLACENTA, UNSPECIFIED, THIRD TRIMESTER Status: Acute Current Visit: Yes (5) Vaginal delivery SNOMED Code(s): 773192246 Code(s): O80 - ENCOUNTER FOR FULL-TERM UNCOMPLICATED DELIVERY Status: Acute Current Visit: Yes (6) (infant) SNOMED Code(s): 372292802 Code(s): Z78.9 - OTHER SPECIFIED HEALTH STATUS Status: Acute Current Visit: Yes - Problem List Review Problem List Initiated/Reviewed/Updated: Yes - Assessment Assessment:: 05/15/2020 without complications Smoker UDS positive THC Abnormal placenta 05/16/20 doing well HGB 11.6 feels good smoking OK wants to go home - Plan Plan:: 05/15/2020 19 yo here at 37 4/7 here for medical induction of labor for IUGR Placenta abnormality History of labor Smoker THC use Labs-A positive, HIV neg, Hep B neg, Hep C neg, RPR nonreactive, GBS negative, Hgb-11.7, THC positive in urine SVE-260/-1 Corina regularly every 2.5-3 minutes FHTs category one Plan- Monitor for active labor Monitor FHTs Start pitocin per protocol Place second IV for abnormal placenta Patient may eat regular diet Pain management per patient request If desire epidural SVE and call provider and LUBRICATION EQUIPMENT SERVICER Plan and anticipate a vaginal delivery 05/15/2020 Routine cares Encourage and support 05/16/20 Home today see Yaron Mcleod in 6 weeks for a post visit
== END 2020-05-16 17:10 | disposition home or self-care (01) | DRG 806 ==
LOC: JP.OB 05-15 06:33 → OBSVTOIN 05-15 16:29 → JP.OB 05-15 16:29 → JP.MS 05-15 23:14
PROVIDERS: ADMIT Advanced Practice Midwife; ATTEND Advanced Practice Midwife
PROC: 10E0XZZ Delivery of Products of Conception, External Approach (ICD-10-PCS; principal; 2020-05-15)
PROC: 3E0P7VZ Introduction of Hormone into Female Reproductive, Via Natural or Artificial Opening (ICD-10-PCS; 2020-05-15)
PROC: 3E033VJ Introduction of Other Hormone into Peripheral Vein, Percutaneous Approach (ICD-10-PCS; 2020-05-15)
PROC: 3E0R3BZ Introduction of Anesthetic Agent into Spinal Canal, Percutaneous Approach (ICD-10-PCS; 2020-05-15)
PROC: 00HU33Z Insertion of Infusion Device into Spinal Canal, Percutaneous Approach (ICD-10-PCS; 2020-05-15)
DX: O36.5930 Maternal care for other known or suspected poor fetal growth, third trimester, not applicable or unspecified (principal); O99.324 Drug use complicating childbirth; Z37.0 Single live birth; Z3A.37 37 weeks gestation of pregnancy; O43.103 Malformation of placenta, unspecified, third trimester; O99.334 Smoking (tobacco) complicating childbirth; F17.200 Nicotine dependence, unspecified, uncomplicated; F12.20 Cannabis dependence, uncomplicated
CPT/HCPCS: 36415; 51702; 59409; 76819; 76819-26; 80305-QW; 81001; 85025; A9270-GY; J2590; J2795; J7120

== ENCOUNTER 2021-02-07 23:15 | Emergency (ER) | payer MEDICAID ==
--- NOTE | 2021-02-08 00:41 | EDM.PDOC ---
ED HPI GENERAL MEDICAL PROBLEM - General Chief Complaint: Lower Extremity Injury/Pain Stated Complaint: RIGHT FOOT BROKE? Time Seen by Provider: 02/08/21 00:31 Source of Information: Reports: Patient History Limitations: Reports: No Limitations - History of Present Illness INITIAL COMMENTS - FREE TEXT/NARRATIVE: Mary is a 20-year-old female presenting to the ED with her mother for evaluation of right foot and ankle pain and swelling. The patient states that she did a couple of drinks tonight and is a little intoxicated. She had told the nurse that she was wrestling with her boyfriend and fell causing her to twist her ankle. She had told me that she was going down the outside steps of her boyfriend's mother's house and may have missed a step causing her to fall and injure her foot and ankle. She denies any numbness but does have significant pain especially over the lateral ankle and dorsal lateral foot. Ecchymosis is already apparent over the anterior dorsal lateral foot. She denies any other injury. Right Ankle Pain Score (Numeric/FACES): 10 - Related Data Allergies Allergy/AdvReac Type Severity Reaction Status Date / Time No Known Allergies Allergy Verified 02/08/21 00:16 Home Meds: Home Meds NK [No Known Home Meds] 02/08/21 [History] Past Medical History HEENT History: Reports: Impaired Vision MRI CT TECH History: Reports: Psychiatric History: Reports: Anxiety, Depression - Past Surgical History HEENT Surgical History: Reports: Adenoidectomy, Tonsillectomy Social & Family History - Family History Family Medical History: No Pertinent Family History - Tobacco Use Tobacco Use Status *Q: Current Every Day Tobacco User Years of Tobacco use: 5 Packs/Tins Daily: 0.2 Used Tobacco, but Quit: No Second Hand Smoke Exposure: Yes - Caffeine Use Caffeine Use: Reports: Coffee Other Caffeine Use: small amounts of coffee and soda Caffeine Use Comment: 1 can soda per day - Alcohol Use Days Per Week of Alcohol Use: 1 Number of Drinks Per Day: 5 Total Drinks Per Week: 5 - Recreational Drug Use Recreational Drug Use: No Review of Systems - Review of Systems Review Of Systems: See Below Constitutional: Reports: No Symptoms Musculoskeletal: Reports: Foot Pain (Right anterior lateral foot pain), Joint Pain (Right lateral ankle swelling and pain), Joint Swelling (Swelling over the lateral malleolus and anterior lateral foot) Skin: Reports: Bruising (Over the right anterior lateral foot) Neurological: Reports: No Symptoms ED EXAM, GENERAL - Physical Exam Exam: See Below Exam Limited By: No Limitations General Appearance: Alert, Anxious, Mild Distress Head: Atraumatic, Normocephalic Neck: Normal Inspection Back Exam: Normal Inspection Extremities: Normal Capillary Refill, Joint Swelling (Significant swelling and tenderness to palpation over the lateral malleolus and the fourth and fifth metatarsals), Limited Range of Motion (Significant reduction in range of motion the right foot with flexion, extension and inversion.), Other (Swelling and possibly deformity of the lateral malleolus on the right foot) Neurological: Alert, Oriented, Normal Cognition, No Motor/Sensory Deficits Skin Exam: Ecchymosis (Bruising on the anterior lateral right foot) Course - Vital Signs Last Recorded V/S: Last Vital Signs Temp 36.7 C 02/08/21 00:22 Pulse 109 H 02/08/21 00:22 Resp 16 02/08/21 00:22 BP 116/76 02/08/21 00:22 Pulse Ox 96 02/08/21 00:22 - Orders/Labs/Meds Orders: Active Orders 24 hr Category Date Time Status Ankle Min 3V Rt [CR] Stat Exams 02/08/21 00:31 Taken Foot 2V Rt [CR] Stat Exams 02/08/21 00:35 Taken - Radiology Interpretation Free Text/Narrative:: Reviewed the x-rays of the right ankle and foot. There is no acute osseous abnormalities. There is soft tissue swelling over the lateral malleolus. - Re-Assessments/Exams Free Text/Narrative Re-Assessment/Exam: 02/08/21 01:18 reviewed the x-rays of the right foot and ankle. There is no osseous abnormalities to indicate an acute fracture. This is likely an inversion sprain of the right ankle with ecchymosis of the foot due to injury to the anterior talofibular ligament. The patient was placed in an air splint ankle brace and on crutches. She is instructed to be nonweightbearing for the next 3 days. She may do partial weightbearing for the next 5 days ambulating with crutches. I did give her a work note taking her off work for the next week. She was instructed to ice, elevate, and rest the ankle for least the next 2 days. Indications to return to the ED were discussed. If she is not improving in the next 5 days she should follow-up with her primary care provider or return here for reevaluation. Patient's in agreement with this plan. Departure - Departure Time of Disposition: 01:19 Disposition: Home, Self-Care 01 Clinical Impression: Inversion sprain of right ankle Qualifiers: Encounter type: initial encounter Qualified Code(s): S93.401A - Sprain of unspecified ligament of right ankle, initial encounter - Discharge Information Instructions: Ankle Sprain, Phase I Rehab-SportsMed, Crutch Use, Adult, [id number] Referrals: Paula Mcleod CNM [Primary Care Provider] - Forms: ED Department Discharge Care Plan Goals: I recommend that you ice the foot and ankle for 15 to 20 minutes every couple hours you are awake for the next 1 to 2 days. This will help reduce pain and swelling of the ankle and foot. You will likely have significant bruising of the foot due to injury of the anterior talofibular ligament. Please wear the ankle brace when up and moving around even if you are nonweightbearing on the outside chance that you may have to put the foot down to balance herself and we want to make sure we stabilize the ankle. Please ambulate with crutches for the next 3 days nonweightbearing on the right foot and then partial weightbearing for the next 5 after that. I anticipate that this will take 7 to 10 days to fully recover, however, he may be able to ambulate with some pain in the next 5 to 6 days. I have provided you with a work note taking you off work for the next week. You may take ibuprofen 600 mg (Advil 3 tablets) every 6 hours as needed for pain control. Feel free to contact us if you have any concerns. Sepsis Event Note (ED) - Evaluation Sepsis Screening Result: No Definite Risk - Focused Exam Vital Signs: Vital Signs Temp Pulse Resp BP Pulse Ox 02/08/21 00:22 36.7 C 109 H 16 116/76 96 - Problem List & Annotations (1) Inversion sprain of right ankle SNOMED Code(s): 99298142 Code(s): S93.401A - SPRAIN OF UNSPECIFIED LIGAMENT OF RIGHT ANKLE, INIT ENCNTR Status: Acute Priority: Low Current Visit: Yes Qualifiers: Encounter type: initial encounter Qualified Code(s): S93.401A - Sprain of unspecified ligament of right ankle, initial encounter - Problem List Review Problem List Initiated/Reviewed/Updated: Yes - My Orders Last 24 Hours: My Active Orders 02/08/21 00:31 Ankle Min 3V Rt [CR] Stat 02/08/21 00:35 Foot 2V Rt [CR] Stat - Assessment/Plan Last 24 Hours: My Active Orders 02/08/21 00:31 Ankle Min 3V Rt [CR] Stat 02/08/21 00:35 Foot 2V Rt [CR] Stat
--- NOTE | 2021-02-09 15:07 | CR ---
FOOT RIGHT 3 views CLINICAL HISTORY:Trauma FINDINGS:No fracture or dislocation is identified. Articular surfaces are smooth. Impression: Negative
--- NOTE | 2021-02-09 15:59 | CR ---
Ankle Min 3V Rt CLINICAL HISTORY: Injury FINDINGS: The soft tissues are normal. No acute fracture or dislocation is noted. Ankle mortise is intact. Articular surfaces are smooth Impression: No fracture or dislocation
== END 2021-02-08 01:43 | disposition home or self-care (01) ==
LOC: JP.ED 23:15
DX: S93.401A Sprain of unspecified ligament of right ankle, initial encounter (principal); Z72.0 Tobacco use; X50.1XXA Overexertion from prolonged static or awkward postures, initial encounter
CPT/HCPCS: 73610-26-RT; 73610-RT; 73620-26-RT; 73620-RT; 99283

== ENCOUNTER 2022-05-06 02:15 | Emergency (ER) | payer MEDICAID | END 2022-05-06 03:08 | disposition home or self-care (01) | LOC: JP.ED 02:15 | DX: S60.551A Superficial foreign body of right hand, initial encounter (principal); F17.210 Nicotine dependence, cigarettes, uncomplicated; W49.04XA Ring or other jewelry causing external constriction, initial encounter | CPT/HCPCS: 99283 ==